=== PATIENT | male | born 1955 | race Two or more races ===

== ENCOUNTER 2025-06-14 10:45 | Day surgery (SDC) | payer OTHER ==
[2025-06-10 14:59] LABS: Hematocrit 35.5 % (41.0-53.0); Hemoglobin 12.5 g/dL (13.5-17.5); Mean Corpuscular Hemoglobin 35.2 pg (28.0-32.0); Mean Corpuscular Volume 99.8 fL (80.0-100.0); Nucleated Red Blood Cells % 0.0 %
[2025-06-10 15:16] LABS: INR 1.0 (0.9-1.15); Partial Thromboplastin Time 26.9 SEC (24.5-34.5); Prothrombin Time 10.6 sec (9.3-11.8)
[2025-06-10 15:31] LABS: Alanine Aminotransferase 31 U/L (7-40); Albumin 4.2 g/dL (3.2-4.8); Alkaline Phosphatase 90 U/L (46-116); Anion Gap 10 (5-15); BUN/Creatinine Ratio 4.3 (10.0-20.0); Blood Urea Nitrogen 20 mg/dL (9-23); Calcium 9.6 mg/dL (8.7-10.4); Carbon Dioxide 35 mmol/L (20-31); Chloride 94 mmol/L (98-107); Glucose 82 mg/dL (74-106); Potassium 4.0 mmol/L (3.5-5.1); Sodium 139 mmol/L (136-145); Total Protein 7.4 g/dL (5.7-8.2)
[2025-06-10 15:32] LABS: Bilirubin, Total 0.2 mg/dL (0.2-1.0)
[~2025-06-14] VITALS: Ht 162.6 cm; Wt 63.5 kg
[~2025-06-14 10:45] MED LIST: ASPI1TAB20 PO; ATOR10TA52 PO; B-CO-5 OR; CARV6.2517 PO; GABA-1308 PO; LISI20TA56 PO; OMEP20TA PO; PRIM50TA5 GT
[2025-06-14] MEDS ORDERED: SODIUM CHLORIDE LOCK 10 ML ONE (10:59)
[2025-06-14 13:49] VITALS: PULSE 66; RESP 16; O2SAT 100
[2025-06-14] MEDS: LIDOCAINE VISCOUS 2% 15ML UD ONE (13:52)
[2025-06-14] MEDS: MIDAZOLAM HCL 5 MG/ML-1ML VIAL ONE (13:52)
[2025-06-14] MEDS: diphenhydrAMINE HCL 50 MG/1 ML VL ONE (13:52)
[2025-06-14] MEDS: fentaNYL CITRATE 100 MCG/2 ML VL ONE (13:52)
[2025-06-14 14:09] VITALS: TEMP 97
--- NOTE | 2025-06-14 14:12 | DVHOP2 ---
Operative Report DATE OF OPERATION: 06/14/25 PROCEDURE: Upper Endoscopy with biopsy. PREOPERATIVE INDICATION: The patient is a 69 -year-old male undergoing endoscopy for unexplained weight loss and dyspepsia POSTOPERATIVE DIAGNOSES: 1. 2 cm sliding-type hiatal hernia with slightly irregular squamocolumnar junction grade a erosive esophagitis 2. Moderate gastropathy involving the proximal stomach 3. Mild gastroduodenitis with superficial erosions PROCEDURE PERFORMED BY: Jovan Ontiveros GI NURSE: John SCOPE: Olympus videoendoscope. ASA CLASS: 3 PREOPERATIVE MEDICATIONS: Versed 2mg, Fentanyl 50 mcg, Benadryl 50 mg I administered moderate sedation throughout this _8_ minutes procedure. An independent trained observer pushed medications at my direction, and monitored the patient's level of consciousness and physiological status throughout. PROCEDURE IN DETAIL: After obtaining an informed consent, the patient was placed on left lateral decubitus position. The patient was then sedated with the above medications. A bite block was placed between his teeth. The endoscope was then passed through the oropharynx, into the esophagus, and through the stomach and pylorus up to the second and third part of the duodenum. The endoscope was then withdrawn. The 2nd and 3rd part of the duodenal were normal. There was good bile drainage. The duodenal bulb and postbulbar area showed some duodenitis with some hyperemia. The pre-pyloric area and antrum showed mild gastritis. Duodenal and gastric biopsies were obtained On retroflexion the patient had moderate gastropathy involving the proximal stomach from which biopsies were also obtained The endoscope was then withdrawn into the distal esophagus where the patient had a 2 cm sliding-type hiatal hernia with slightly irregular squamocolumnar junction GE junction biopsies were obtained. The remaining distal and proximal esophagus and oropharynx were unremarkable The patient tolerated the procedure well without difficulty. COMPLICATIONS : None SPECIMENS: Duodenal biopsies Gastric biopsies GE junction biopsies DISPOSITION: Stable D/C to home PLAN: 1. Await for biopsy result 2. Will place pt on Protonix 40 mg bid 3. Carafate 1 g p.o. twice a day 4. DC aspirin NSAIDs smoking alcohol 5. Outpatient follow up with me in 2-4 weeks to review results and discuss further management JOVAN ONTIVEROS MD Jun 14, 2025 14:12
[2025-06-14 14:45] VITALS: BP 126/69; PULSE 63; RESP 11; O2SAT 96
== END 2025-06-14 14:55 | disposition home or self-care (01) ==
LOC: GI 10:45
PROVIDERS: ATTEND Internal Medicine Gastroenterology
DX: R10.13 Epigastric pain (principal); K29.50 Unspecified chronic gastritis without bleeding; K31.89 Other diseases of stomach and duodenum; K44.9 Diaphragmatic hernia without obstruction or gangrene; K29.90 Gastroduodenitis, unspecified, without bleeding; K22.10 Ulcer of esophagus without bleeding; K31.9 Disease of stomach and duodenum, unspecified; R63.4 Abnormal weight loss; I10 Essential (primary) hypertension; E11.9 Type 2 diabetes mellitus without complications; E78.00 Pure hypercholesterolemia, unspecified; Z68.24 Body mass index [BMI] 24.0-24.9, adult; Z79.899 Other long term (current) drug therapy; Z85.46 Personal history of malignant neoplasm of prostate; Z99.2 Dependence on renal dialysis; Z98.890 Other specified postprocedural states
CPT/HCPCS: 36415; 43239; 80053; 82962; 85025; 85610; 85730; 88305; 88342; A4649; J1200; J2250; J3010; J7030